=== PATIENT | male | born 1970 | race Caucasian/White ===

== ENCOUNTER 2024-07-15 10:44 | Observation (INO) ==
--- NOTE | 2024-07-15 11:24 | DR.SOBA ---
HPI Time Seen Time Seen by Provider: 07/15/24 11:22 HPI Comment HPI Comment: Acccording to pt he was doing better approx 4-5 days ago after d/c from the ER on 07/10.Has noticd gradual onset of shortnes of breath which worsens with activity associated with intermittent cough with increased swelling over this legs .Concerned here to have himself checked and get lasix injection Complaints Chief Complaint:: shortness of breath Reviewed Nurses Notes Reviewed: Yes Source History Provided: Patient Mode of Arrival Mode of Arrival: Ambulatory Duration Duration: Days Context Onset:: At Rest and With Light Exertion History of:: COPD Currently on:: Inhaled Bronchodilators Prehospital Care:: Furosemide Modifying Factors Worsens:: Exertion Improves:: Nothing PMH PMH Past Medical History: Diabetes, GERD, Hypertension and Renal Disease Past Surgical History: No Surgical History: No History Family History Family Medical History: Diabetes Mellitus, Cancer, [place], Coronary Artery Disease and Hypertension Social History Do you use any recreational Drugs:: No ROS Review of Systems Constitutional: Malaise and Fatigue Eyes: No Symptoms Reported ENTM: No Symptoms Reported Respiratoy: Non-Productive Cough and Short of Breath Cardiovascular: No Symptoms Reported Gastrointestinal/Abdominal: No Symptoms Reported Genitourinary: No Symptoms Reported Neurological: No Symptoms Reported Musculoskeletal: No Symptoms Reported Integumentary: No Symptoms Reported Hematologic/Lymphatic: No Symptoms Reported Psychiatric: No Symptoms Reported PE Vital Signs Vitals: Vital Signs Temperature 98.2 F Pulse Rate 90 Pulse Rate 91 Pulse Rate 91 Pulse Rate 88 Pulse Rate 89 Pulse Rate 92 Pulse Rate 91 Pulse Rate 90 Pulse Rate 91 Pulse Rate 93 Pulse Rate 96 Pulse Rate 97 Respiratory Rate 18 Respiratory Rate 21 Respiratory Rate 21 Respiratory Rate 19 Respiratory Rate 17 Respiratory Rate 20 Respiratory Rate 17 Respiratory Rate 16 Respiratory Rate 19 Respiratory Rate 19 Respiratory Rate 22 Blood Pressure 139/75 Blood Pressure 121/69 Blood Pressure 146/70 Blood Pressure 129/96 Blood Pressure 125/73 O2 Sat by Pulse Oximetry 90 O2 Sat by Pulse Oximetry 90 O2 Sat by Pulse Oximetry 91 O2 Sat by Pulse Oximetry 92 O2 Sat by Pulse Oximetry 94 O2 Sat by Pulse Oximetry 99 O2 Sat by Pulse Oximetry 90 O2 Sat by Pulse Oximetry 96 O2 Sat by Pulse Oximetry 97 O2 Sat by Pulse Oximetry 97 O2 Sat by Pulse Oximetry 93 O2 Sat by Pulse Oximetry 93 General Limitations: No Limitations General Appearance: Alert and In Distress Head Head Exam: Normal Inspection, Atraumatic and Normocephalic Eyes Eye exam: Normal Appearance, PERRL and EOMI ENT ENT Exam: Mucous Membranes Moist Neck Neck Exam: Normal Inspection and Full ROM Chest Chest Inspection: Normal Inspection and Symmetric Chest Wall Rise Respiratory Respiratory Exam: Prolonged Expiratory Phase Respiratory Exam: Bilateral: Wheezing and Bilateral: Decreased Breath Sounds Cardiovascular Cardiovascular Exam: +S1 and +S2 Abdominal Exam Abdominal Exam: Normal Bowel Sounds and Soft Extremities Extremities Exam: Edema (with thickened skin ) Neurologic Neurological Exam: Alert Skin Skin Exam: Normal Color MDM Additional Information Obtained Additional Findings:: copd exacerbation ,chf right V left ,obesity ,tobacco user hypoxia COURSE Treatment Treatment: labs,cxr ,solumederol IV ,duoneb ROR Labs Reviewed 07/15/24 12:10 07/15/24 12:10 Laboratory: WBC 6.7 X10^3/uL (3.6-10.0) 07/15/24 12:10 RBC 4.38 X10^6/uL (4.7-6.0) L 07/15/24 12:10 Hgb 13.6 g/dL (13.5-18.0) 07/15/24 12:10 Hct 40.3 % (42.0-54.0) L 07/15/24 12:10 MCV 92.0 fL (80.0-100.0) 07/15/24 12:10 MCH 31.1 pg (27.0-34.0) 07/15/24 12:10 MCHC 33.7 g/dL (33.0-35.0) 07/15/24 12:10 RDW 15.8 % (11.6-16.5) 07/15/24 12:10 Plt Count 161 X10^3/uL (150.0-450.0) 07/15/24 12:10 MPV 8.0 fL (7.4-11.0) 07/15/24 12:10 Neut % (Auto) 62.8 % (42.0-75.0) 07/15/24 12:10 Lymph % (Auto) 25.5 % (21.0-51.0) 07/15/24 12:10 [place] % (Auto) 8.1 % (0.0-13.0) 07/15/24 12:10 Eos % (Auto) 2.6 % (0.9-2.9) 07/15/24 12:10 Baso % (Auto) 1.0 % (0.2-1.0) 07/15/24 12:10 Neut # (Auto) 4.2 x10^3/uL (2.2-4.8) 07/15/24 12:10 Lymph # (Auto) 1.7 X10^3/uL (1.3-2.9) 07/15/24 12:10 [place] # (Auto) 0.5 x10^3/uL (0.3-0.8) 07/15/24 12:10 Eos # (Auto) 0.2 x10^3/uL (0.0-0.2) 07/15/24 12:10 Baso # (Auto) 0.1 X10^3/uL (0.0-0.1) 07/15/24 12:10 Absolute Nucleated RBC 0.1 /100WBC 07/15/24 12:10 Sodium 144 mmol/L (136-145) 07/15/24 12:10 Corrected Sodium 149 mmol/L (136-145) H 07/15/24 12:10 Potassium 4.0 mmol/L (3.5-5.1) 07/15/24 12:10 Chloride 104 mmol/L (98-107) 07/15/24 12:10 Carbon Dioxide 32.6 mmol/L (21-32) H 07/15/24 12:10 BUN 16 mg/dL (7-18) 07/15/24 12:10 Creatinine 2.09 mg/dL (0.70-1.30) H 07/15/24 12:10 Est GFR (MDRD) Af Amer 43 (>60) L 07/15/24 12:10 Est GFR (MDRD) Non-Af 35 (>60) L 07/15/24 12:10 Glucose 291 mg/dL (65-99) H 07/15/24 12:10 Calcium 8.7 mg/dL (8.5-10.1) 07/15/24 12:10 Corrected Calcium 9.6 mg/dL (8.5-10.1) 07/15/24 12:10 Total Bilirubin 0.50 mg/dL (0.2-1.0) 07/15/24 12:10 AST 14 Units/L (15-37) L 07/15/24 12:10 ALT 16 Units/L (12-78) 07/15/24 12:10 Alkaline Phosphatase 163 Units/L (46-116) H 07/15/24 12:10 B-Natriuretic Peptide 2050 pg/mL (0-79) H 07/15/24 12:10 Total Protein 7.4 g/dL (6.4-8.2) 07/15/24 12:10 Albumin 2.9 g/dL (3.4-5.0) L 07/15/24 12:10 Globulin 4.5 g/dL (2.5-4.5) 07/15/24 12:10 Albumin/Globulin Ratio 0.6 Ratio (1.1-2.1) L 07/15/24 12:10 Opioid Opioid Risk Tool Age (Rafa box if 16-45): No History of Preadolescent Sexual Abuse: No Total: 0 Total Score Risk Category: Low Risk Copyright: Cristian IVY predicting aberrant behaviors Discharge Plan Diagnosis Discharge Problem: Acute exacerbation of chronic obstructive pulmonary disease, Hypoxia, CHF exacerbation, Acute on chronic kidney failure, Uncontrolled diabetes mellitus Discharge Plan Patient Disposition: 09 ADMITTED INPATIENT Condition: Stable Prescriptions: No Action quetiapine 25 mg tablet 25 mg PO QPM atorvastatin 20 mg tablet 20 mg PO QDAY torsemide 20 mg tablet 20 mg PO BID famotidine 40 mg tablet 40 mg PO QDAY allopurinol 100 mg tablet 100 mg PO QDAY hydrocodone-acetaminophen 10-325 mg tablet 1 tab PO Q4H PRN furosemide 20 mg tablet 20 mg PO BID ergocalciferol (vitamin D2) 1,250 mcg (50,000 unit) capsule 1,250 mcg PO QWEEK Jardiance 10 mg tablet 10 mg PO QDAY Health Concerns: Post Hospitalization: new medications and changes needed to prevent readmission or further decline. Pt educated and given instructions on all concerns. Plan of Treatment: Continue with present treatment and follow up plan. Pt is to keep follow up appointment as instructed and take medications as ordered. Orders to Discharge Patient Discharge Orders: Transfer (Routine); Ordered 07/15/24 Ordered By: Chauncey Rodriguez Follow ups/Referrals Follow ups/Referrals: Michelle REGAN [Primary Care Provider] - 3 days Instructions Stand Alone Forms: Post Hospital Follow Up Care ADDITIONAL NOTES Additional Notes Additional Notes: BNP over 1999,cxr chronic changes with blunting of costophrenic angle,CHF right v left or both ,Acute on chronic renal failure stage 3,uncontrolled dm tobacco usre and hypoxia .spoke with Dr Alfonso agreed to ahve patient admitted for further management
[2024-07-15] MEDS: SOLU-Medrol 125 MG VIAL IVP ONE (12:08)
[2024-07-15] MEDS: DUONEB 0.5 MG/3 MG (3 mL) NEB ONE (12:12)
[2024-07-15 12:18] LABS: HEMOGLOBIN 13.6 g/dL (13.5-18.0); WHITE BLOOD COUNT 6.7 X10^3/uL (3.6-10.0)
[2024-07-15 12:21] LABS: BASOPHILS # (AUTO) 0.1 X10^3/uL (0.0-0.1); EOSINOPHILS # (AUTO) 0.2 x10^3/uL (0.0-0.2); EOSINOPHILS % (AUTO) 2.6 % (0.9-2.9); HEMATOCRIT 40.3 % (42.0-54.0); LYMPHOCYTES # (AUTO) 1.7 X10^3/uL (1.3-2.9); LYMPHOCYTES % (AUTO) 25.5 % (21.0-51.0); MEAN CORPUSCULAR HEMOGLOBIN 31.1 pg (27.0-34.0); MEAN CORPUSCULAR HGB CONC 33.7 g/dL (33.0-35.0); MONOCYTES # (AUTO) 0.5 x10^3/uL (0.3-0.8); MONOCYTES % (AUTO) 8.1 % (0.0-13.0); NEUTROPHILS # (AUTO) 4.2 x10^3/uL (2.2-4.8); NEUTROPHILS % (AUTO) 62.8 % (42.0-75.0); PLATELET COUNT 161 X10^3/uL (150.0-450.0); RED BLOOD COUNT 4.38 X10^6/uL (4.7-6.0); RED CELL DISTRIBUTION WIDTH 15.8 % (11.6-16.5)
[2024-07-15 12:30] LABS: ALBUMIN 2.9 g/dL (3.4-5.0); CALCIUM 8.7 mg/dL (8.5-10.1); CARBON DIOXIDE 32.6 mmol/L (21-32); COR CA(FOR HYPOALB) 9.6 mg/dL (8.5-10.1); CREATININE 2.09 mg/dL (0.70-1.30); TOTAL PROTEIN 7.4 g/dL (6.4-8.2)
[2024-07-15] MEDS: LASIX IVP ONE ×2 (13:19→16:26)
[2024-07-15] MEDS ORDERED: NORCO 10/325 TAB PO PRN (13:44)
[2024-07-15] MEDS: ZYLOPRIM PO SCH (15:54)
[2024-07-15] MEDS: LANTUS SC ONE (16:26)
[2024-07-15] MEDS: DUONEB 0.5 MG/3 MG (3 mL) NEB SCH (17:01)
[2024-07-15] MEDS: HumaLOG SC PRN (17:08)
[2024-07-15] MEDS: LASIX IVP SCH (18:51)
[2024-07-15] MEDS: SOLU-Medrol 40 MG VIAL IVP SCH (20:17)
[2024-07-15] MEDS: PULMICORT NEB TX 0.5 MG NEB SCH (20:32)
[2024-07-15] MEDS: NovoLIN R (or HumuLIN R) SUBCUT PRN (21:00)
[2024-07-15] MEDS: SNACK - Diabetic Appropriate PO SCH (21:00)
[2024-07-16 05:39] LABS: BASOPHILS % (AUTO) 0.1 % (0.2-1.0); HEMATOCRIT 35.4 % (42.0-54.0); LYMPHOCYTES # (AUTO) 0.6 X10^3/uL (1.3-2.9); LYMPHOCYTES % (AUTO) 9.5 % (21.0-51.0); MEAN CORPUSCULAR HEMOGLOBIN 30.8 pg (27.0-34.0); MEAN CORPUSCULAR VOLUME 90.5 fL (80.0-100.0); MEAN PLATELET VOLUME 8.6 fL (7.4-11.0); MONOCYTES # (AUTO) 0.1 x10^3/uL (0.3-0.8); MONOCYTES % (AUTO) 1.1 % (0.0-13.0); NEUTROPHILS # (AUTO) 5.8 x10^3/uL (2.2-4.8); NEUTROPHILS % (AUTO) 89.3 % (42.0-75.0); PLATELET COUNT 150 X10^3/uL (150.0-450.0); RED BLOOD COUNT 3.91 X10^6/uL (4.7-6.0); RED CELL DISTRIBUTION WIDTH 15.4 % (11.6-16.5); WHITE BLOOD COUNT 6.5 X10^3/uL (3.6-10.0)
[2024-07-16 05:51] LABS: ALBUMIN 2.5 g/dL (3.4-5.0); CALCIUM 8.7 mg/dL (8.5-10.1); CARBON DIOXIDE 29.6 mmol/L (21-32); COR CA(FOR HYPOALB) 9.9 mg/dL (8.5-10.1); CREATININE 2.22 mg/dL (0.70-1.30); POTASSIUM 3.8 mmol/L (3.5-5.1); TOTAL PROTEIN 6.6 g/dL (6.4-8.2)
[2024-07-16] MEDS ORDERED: CONSULT PHARMACY - POTASSIUM & MAGNESIUM XX SCH (07:00)
[2024-07-16] MEDS: LIPITOR TAB 20 MG PO SCH (09:12)
[2024-07-16] MEDS: MAG-OX TAB PO SCH (09:12)
[2024-07-16] MEDS: KLOR-CON 10 MEQ TAB PO SCH (09:12)
[2024-07-16 09:26] VITALS: BMI 38.9
[2024-07-16] MEDS: ALDACTONE TAB 25 MG PO SCH (12:15)
[2024-07-16] MEDS: COREG TAB 6.25 MG PO SCH (20:16)
[2024-07-16] MEDS: SNACK - Diabetic Appropriate PO SCH (20:16)
[2024-07-16] MEDS: LANTUS SC SCH (20:21)
--- NOTE | 2024-07-16 22:44 | DR.H&P ---
H&P History & Physical for Day of: H&P Date: 07/16/24 Chief Complaint Chief Complaint: A little bit of coughing and fluid on my lungs. History of Present Illness History of Present Illness: Dhiraj Parekh is a 53-year-old white male patient with a history of COPD, CHF, and renal failure. He reports that he came to the ER yesterday due to an exacerbation of his COPD and CHF, and is currently experiencing difficulty breathing and coughing. Symptoms have worsened in the past few days, indicating that they are related to changes in weather, which he links to his prior episodes of illness over the last five years. Dhiraj denies chest pain but reports a notable increase in cough. He is diabetic, with a history of elevated blood sugars. Recent treatments include nebulizer therapy (duonebs) that have helped slightly, Lasix for fluid management, and Lantus to control blood sugar levels, which he feels has not sufficiently addressed his blood sugar irregularities. Overall, he expresses frustration at the number of diagnosed conditions, stating that he struggles to understand the multiple diagnoses given his symptoms and treatments. Past Medical History Past Medical History: Diabetes, GERD, Hypertension and Renal Disease Additional Medical History: Dhiraj has been diagnosed with conditions of COPD, CHF, chronic kidney disease stage 3B (with elevated creatinine of 2.22), and diabetes with high blood sugar levels (recorded at 394, 414). His renal function appears to have been chronic, with a baseline creatinine of around 2.02 to 2.09. Recent tests show elevated BNP levels indicating fluid overload due to congestive heart failure, measuring at 2390 today compared to 2050 yesterday. No recent HbA1c levels were documented in the conversation. Past Surgical History Surgical History: No History Family History Family Medical History: Diabetes Mellitus, Cancer and Hypertension Social History Does patient currently use any type of tobacco product: Yes Have you used tobacco products in the last 12 months: Yes Type of Tobacco Use: Cigarettes How many years tobacco product used: 35 Does any household member use tobacco: Yes Alcohol Use: None Drug Use: None Medications Home Medications: Home Medications Medication Instructions Recorded Confirmed Type allopurinol 100 mg tablet 100 mg PO QDAY 07/15/24 07/15/24 History amlodipine 10 mg tablet 10 mg PO QDAY 07/15/24 07/15/24 History atorvastatin 20 mg tablet 20 mg PO QDAY 07/15/24 07/15/24 History empagliflozin 10 mg tablet 10 mg PO QDAY 07/15/24 07/15/24 History (Jardiance) ergocalciferol (vitamin D2) 1,250 1,250 mcg PO QWEEK 07/15/24 07/15/24 History mcg (50,000 unit) capsule famotidine 40 mg tablet 40 mg PO QDAY 07/15/24 07/15/24 History furosemide 20 mg tablet 20 mg PO BID 07/15/24 07/15/24 History hydrocodone 10 mg-acetaminophen 1 tab PO Q4H PRN 07/15/24 07/15/24 History 325 mg tablet quetiapine 25 mg tablet 25 mg PO QPM 07/15/24 07/15/24 History temazepam 15 mg capsule 15 mg PO QHS 07/15/24 07/15/24 History torsemide 20 mg tablet 20 mg PO BID 07/15/24 07/15/24 History Allergies Allergies Allergy/AdvReac Type Severity Reaction Status Date / Time Sulfa (Sulfonamide Allergy Verified 07/15/24 13:11 Antibiotics) [SULFA] Labs 07/16/24 04:46 07/16/24 19:34 Labs: Laboratory WBC 6.5 X10^3/uL (3.6-10.0) 07/16/24 04:46 RBC 3.91 X10^6/uL (4.7-6.0) L 07/16/24 04:46 Hgb 12.0 g/dL (13.5-18.0) L 07/16/24 04:46 Hct 35.4 % (42.0-54.0) L 07/16/24 04:46 MCV 90.5 fL (80.0-100.0) 07/16/24 04:46 MCH 30.8 pg (27.0-34.0) 07/16/24 04:46 MCHC 34.0 g/dL (33.0-35.0) 07/16/24 04:46 RDW 15.4 % (11.6-16.5) 07/16/24 04:46 Plt Count 150 X10^3/uL (150.0-450.0) 07/16/24 04:46 MPV 8.6 fL (7.4-11.0) 07/16/24 04:46 Neut % (Auto) 89.3 % (42.0-75.0) H 07/16/24 04:46 Lymph % (Auto) 9.5 % (21.0-51.0) L 07/16/24 04:46 [place] % (Auto) 1.1 % (0.0-13.0) 07/16/24 04:46 Eos % (Auto) 0.0 % (0.9-2.9) L 07/16/24 04:46 Baso % (Auto) 0.1 % (0.2-1.0) L 07/16/24 04:46 Neut # (Auto) 5.8 x10^3/uL (2.2-4.8) H 07/16/24 04:46 Lymph # (Auto) 0.6 X10^3/uL (1.3-2.9) L 07/16/24 04:46 [place] # (Auto) 0.1 x10^3/uL (0.3-0.8) L 07/16/24 04:46 Eos # (Auto) 0.0 x10^3/uL (0.0-0.2) 07/16/24 04:46 Baso # (Auto) 0.0 X10^3/uL (0.0-0.1) 07/16/24 04:46 Absolute Nucleated RBC 0.0 /100WBC 07/16/24 04:46 Sodium 137 mmol/L (136-145) 07/16/24 04:46 Corrected Sodium 144 mmol/L (136-145) 07/16/24 04:46 Potassium 3.8 mmol/L (3.5-5.1) 07/16/24 04:46 Chloride 99 mmol/L (98-107) 07/16/24 04:46 Carbon Dioxide 29.6 mmol/L (21-32) 07/16/24 04:46 BUN 21 mg/dL (7-18) H 07/16/24 04:46 Creatinine 2.22 mg/dL (0.70-1.30) H 07/16/24 04:46 Est GFR (MDRD) Af Amer 40 (>60) L 07/16/24 04:46 Est GFR (MDRD) Non-Af 33 (>60) L 07/16/24 04:46 Glucose 695 mg/dL (65-99) H* 07/16/24 19:34 POC Glucose (mg/dL) > 600 mg/dL (65-99) 07/16/24 19:24 Hemoglobin A1c 10.9 % 07/15/24 12:10 Calcium 8.7 mg/dL (8.5-10.1) 07/16/24 04:46 Corrected Calcium 9.9 mg/dL (8.5-10.1) 07/16/24 04:46 Magnesium 1.5 mg/dL (2.0-2.9) L 07/16/24 04:46 Total Bilirubin 0.40 mg/dL (0.2-1.0) 07/16/24 04:46 AST 14 Units/L (15-37) L 07/16/24 04:46 ALT 14 Units/L (12-78) 07/16/24 04:46 Alkaline Phosphatase 145 Units/L (46-116) H 07/16/24 04:46 B-Natriuretic Peptide 2390 pg/mL (0-79) H 07/16/24 04:46 Total Protein 6.6 g/dL (6.4-8.2) 07/16/24 04:46 Albumin 2.5 g/dL (3.4-5.0) L 07/16/24 04:46 Globulin 4.1 g/dL (2.5-4.5) 07/16/24 04:46 Albumin/Globulin Ratio 0.6 Ratio (1.1-2.1) L 07/16/24 04:46 Review of Systems Constitutional: Other (Review of Systems (ROS) Pulmonary - reports difficulty with breathing and a cough but denies chest pain. Cardiovascular - appears to be experiencing signs related to CHF. There were no reported symptoms from the gastrointestinal, neurological, or musculoskeletal systems. Denies abdominal pain) Respiratory: Cough, Shortness of Breath and SOB with Excertion; denies Hemoptysis Cardiovascular: Orthopnea, Edema and Light Headedness Gastrointestinal: Nausea; denies Diarrhea, Melena or Hematochezia Genitourinary: Retention; denies Hematuria Musculoskeletal: Back Pain Skin: No Symptoms Reported Neurological: No Symptoms Reported Physical Exam Vital Signs: Vital Signs Temperature 98 F Temperature 98.9 F Pulse Rate [Left Brachial] 90 Pulse Rate [Left Brachial] 96 Pulse Rate 79 Respiratory Rate 22 Respiratory Rate 18 Blood Pressure [Left Arm] 127/60 Blood Pressure [Left Arm] 107/59 O2 Sat by Pulse Oximetry 94 O2 Sat by Pulse Oximetry 96 O2 Sat by Pulse Oximetry 93 Physical Examination Vital signs: Blood pressure 136/75, heart rate and rhythm not documented, respiratory rate not documented, temperature not documented. Examination findings include positive signs of fluid overload (leg swelling), and upon auscultation, he likely exhibits abnormal lung sounds indicative of congestion. No specific findings from ears, nose, or throat were noted in the transcript. Oriented: Normal, Time, Person and Place Eyes: Normal Ear: Normal Nose: Normal Throat: Normal Respiratory: Clear Throughout Cardiovascular: Normal : Normal Auscultation: Bowel Sounds: Normal Palpation: Normal Tenderness: Normal Skin: Normal Musculoskeletal: Normal Psychiatric: Anxiety and Agitation Mood Description: Calm Affect: Anxious Speech Pattern: Clear and Appropriate Assessment/Plan (1) CHF exacerbation: Status: Acute Plan: Impression & Plan: 1. Congestive Heart Failure Exacerbation - Discontinue amlodipine - Start carvedilol 6.25mg twice daily - Start spironolactone 12.5mg daily - Continue current diuretic regimen - Echocardiogram ordered for tomorrow - Cardiology consultation with Dr. Mandujano 2. Diabetes Mellitus with Poor Control - Adjust insulin regimen: Lantus 20 units in morning and 30 units at bedtime - Continue sliding scale insulin coverage 3. Electrolyte Abnormalities - Magnesium replacement for hypomagnesemia 4. COPD Exacerbation - Continue DuoNeb treatments (2) Bilateral lower extremity edema: Status: Acute (3) Acute hypokalemia: Status: Acute (4) Acute renal insufficiency: Status: Acute (5) Acute exacerbation of chronic obstructive pulmonary disease: Status: Acute Plan: DuoNebs with inhaled budesonide every 12 hours normal IV antibiotics and steroids. (6) Hypoxia: Status: Acute Plan: Supplemental O2 via nasal cannula. (7) Acute on chronic kidney failure: Status: Acute (8) Uncontrolled diabetes mellitus: Status: Acute Plan: The patient was admitted and started on Lantus 30 units in the emergency department yesterday evening. Since his blood sugar is up in the 400s this morning, we will add 20 units every morning and 30 units at bedtime. We are also using a sliding-scale regular insulin per protocol on this patient. He also started on Jardiance 25 mg daily in the emergency room yesterday evening. Review H&P Reviewed: Yes Patient was examined?: Yes
[2024-07-17 05:06] LABS: BASOPHILS % (AUTO) 0 % (0.2-1.0); HEMATOCRIT 35.3 % (42.0-54.0); HEMOGLOBIN 11.7 g/dL (13.5-18.0); LYMPHOCYTES # (AUTO) 0.6 X10^3/uL (1.3-2.9); LYMPHOCYTES % (AUTO) 5.6 % (21.0-51.0); MEAN CORPUSCULAR HEMOGLOBIN 30.5 pg (27.0-34.0); MEAN CORPUSCULAR HGB CONC 33.1 g/dL (33.0-35.0); MEAN CORPUSCULAR VOLUME 92.1 fL (80.0-100.0); MEAN PLATELET VOLUME 8.7 fL (7.4-11.0); MONOCYTES # (AUTO) 0.3 x10^3/uL (0.3-0.8); MONOCYTES % (AUTO) 3.1 % (0.0-13.0); NEUTROPHILS # (AUTO) 9.1 x10^3/uL (2.2-4.8); NEUTROPHILS % (AUTO) 91.3 % (42.0-75.0); PLATELET COUNT 168 X10^3/uL (150.0-450.0); RED BLOOD COUNT 3.83 X10^6/uL (4.7-6.0); RED CELL DISTRIBUTION WIDTH 15.6 % (11.6-16.5)
[2024-07-17 05:21] LABS: ALBUMIN 2.8 g/dL (3.4-5.0); CALCIUM 8.7 mg/dL (8.5-10.1); CARBON DIOXIDE 29.9 mmol/L (21-32); COR CA(FOR HYPOALB) 9.7 mg/dL (8.5-10.1); CREATININE 2.52 mg/dL (0.70-1.30); POTASSIUM 4.5 mmol/L (3.5-5.1); TOTAL PROTEIN 6.9 g/dL (6.4-8.2)
[2024-07-17 05:59] LABS: PLATELET MORPHOLOGY COMMENT NORMAL (NORMAL)
--- NOTE | 2024-07-17 06:05 | RAD ---
EXAM: CHEST, PA/LAT ADULT HISTORY: Swelling of bilateral legs x 5 days with SOB, chills, and productive cough with clear sputum.; COMPARISON: 01/27/2024 FINDINGS: The cardiomediastinal silhouette is stable. Scattered bilateral opacities. No pneumothorax. No acute osseous abnormality. IMPRESSION: Bilateral opacities which may be due to edema or pneumonia. Recommend follow-up to resolution. THIS IS AN ELECTRONICALLY VERIFIED FINAL REPORT 07/17/2024 6:02 AM - Electronically signed by Zafar George MD
--- NOTE | 2024-07-17 07:56 | EKG ---
Test Reason : chf Blood Pressure : */* mmHG Vent. Rate : 86 BPM Atrial Rate : 86 BPM P-R Int : 164 ms QRS Dur : 116 ms QT Int : 384 ms P-R-T Axes : 59 103 51 degrees QTc Int : 459 ms Normal sinus rhythm Rightward axis Incomplete right bundle branch block Nonspecific T wave abnormality Borderline ECG No previous ECGs available Confirmed by Marlon Mandujano MD ([id number]) on 07/17/2024 9:01:04 AM Referred By: Confirmed By: Marlon Mandujano MD
[2024-07-17] MEDS ORDERED: LANTUS SC SCH (09:00)
[2024-07-17] MEDS: LOVENOX INJ 30 MG SYR SC SCH (09:53)
[2024-07-17] MEDS: NICOTINE PATCH TD SCH (09:54)
[2024-07-17] MEDS: FARXIGA PO SCH (09:55)
[2024-07-17] MEDS: LANTUS SC SCH (10:30)
--- NOTE | 2024-07-17 11:50 | DR.CONSULT ---
CONSULT Consultation for Day of: Date: 07/17/24 Chief Complaint Chief Complaint: sob/edema Allergies Allergies Allergy/AdvReac Type Severity Reaction Status Date / Time Sulfa (Sulfonamide Allergy Verified 07/15/24 13:11 Antibiotics) [SULFA] History of Present Illness History of Present Illness: 53 yo male- smoker/dm/copd/chf/renal disease- bad edema for years ( lymphedema)- states very sob/orthopnea/pnd- admiited to hospital- cxr : B PNA- bnp 1999- feeling better w steroids/lasix/antibiotics- echo showed EF 25- 30%- 7.4 cm LVEDD-dilated suggesting chronicity Past Medical History Past Medical History: Diabetes, GERD, Hypertension and Renal Disease Additional Medical History: Dhiraj has been diagnosed with conditions of COPD, CHF, chronic kidney disease stage 3B (with elevated creatinine of 2.22), and diabetes with high blood sugar levels (recorded at 394, 414). His renal function appears to have been chronic, with a baseline creatinine of around 2.02 to 2.09. Recent tests show elevated BNP levels indicating fluid overload due to congestive heart failure, measuring at 2390 today compared to 2050 yesterday. No recent HbA1c levels were documented in the conversation. Past Surgical History Surgical History: No History Family History Family Medical History: Diabetes Mellitus, Cancer and Hypertension Social History Does patient currently use any type of tobacco product: Yes Have you used tobacco products in the last 12 months: Yes Type of Tobacco Use: Cigarettes How many years tobacco product used: 35 Does any household member use tobacco: Yes Alcohol Use: None Drug Use: None Medications Home Medications: Sulfa (Sulfonamide Antibiotics) [SULFA] Allergy (Verified 07/15/24 13:11) CONTINUE taking the following medications allopurinol 100 mg tablet 100 mg PO QDAY 07/15/24 [History] amlodipine 10 mg tablet 10 mg PO QDAY 07/15/24 [History] atorvastatin 20 mg tablet 20 mg PO QDAY 07/15/24 [History] empagliflozin 10 mg tablet (Jardiance) 10 mg PO QDAY 07/15/24 [History] ergocalciferol (vitamin D2) 1,250 mcg (50,000 unit) capsule 1,250 mcg PO QWEEK 07/15/24 [History] famotidine 40 mg tablet 40 mg PO QDAY 07/15/24 [History] furosemide 20 mg tablet 20 mg PO BID 07/15/24 [History] hydrocodone 10 mg-acetaminophen 325 mg tablet 1 tab PO Q4H PRN 07/15/24 [History] quetiapine 25 mg tablet 25 mg PO QPM 07/15/24 [History] temazepam 15 mg capsule 15 mg PO QHS 07/15/24 [History] torsemide 20 mg tablet 20 mg PO BID 07/15/24 [History] Physical Exam Vital Signs: Vital Signs Temperature 98.6 F Pulse Rate [Left Brachial] 87 Respiratory Rate 19 Blood Pressure [Left Arm] 131/71 O2 Sat by Pulse Oximetry 97 alert ox3 nad B cracles rrr 3 plus B edema labs:hct 35 glu 400-600 cr 2.5 alb 2.8 ekg: nsr rad irbbb Plan (1) CHF exacerbation: Status: Acute (2) Bilateral lower extremity edema: Status: Acute (3) Acute exacerbation of chronic obstructive pulmonary disease: Status: Acute (4) Acute on chronic kidney failure: Status: Acute (5) Uncontrolled diabetes mellitus: Status: Acute (6) Diabetes: Status: Acute (7) Cardiomyopathy: Status: Acute Narrative Support Text: cont diuresis- add bb/entresto- follow kidneys- check tsh- will need cath in fututre when out of chf/riskier due to kidneys- no corrine as Cr > 2
[2024-07-17 12:37] LABS: CHOL/HDL RATIO 3.2 (0.0-5.0)
[2024-07-17] MEDS: ENTRESTO 24/26 MG TABLET PO SCH (13:19)
[2024-07-18 06:24] LABS: BASOPHILS % (AUTO) 0.1 % (0.2-1.0); HEMATOCRIT 36.2 % (42.0-54.0); LYMPHOCYTES # (AUTO) 0.6 X10^3/uL (1.3-2.9); LYMPHOCYTES % (AUTO) 4.7 % (21.0-51.0); MEAN CORPUSCULAR HEMOGLOBIN 30.6 pg (27.0-34.0); MEAN CORPUSCULAR HGB CONC 33.2 g/dL (33.0-35.0); MEAN PLATELET VOLUME 8.6 fL (7.4-11.0); MONOCYTES # (AUTO) 0.2 x10^3/uL (0.3-0.8); MONOCYTES % (AUTO) 1.6 % (0.0-13.0); NEUTROPHILS # (AUTO) 11.3 x10^3/uL (2.2-4.8); NEUTROPHILS % (AUTO) 93.6 % (42.0-75.0); PLATELET COUNT 169 X10^3/uL (150.0-450.0); RED BLOOD COUNT 3.93 X10^6/uL (4.7-6.0); RED CELL DISTRIBUTION WIDTH 15.8 % (11.6-16.5); WHITE BLOOD COUNT 12.1 X10^3/uL (3.6-10.0)
[2024-07-18 06:40] LABS: ALBUMIN 2.4 g/dL (3.4-5.0); CALCIUM 8.6 mg/dL (8.5-10.1); CARBON DIOXIDE 32.2 mmol/L (21-32); COR CA(FOR HYPOALB) 9.9 mg/dL (8.5-10.1); CREATININE 2.5 mg/dL (0.70-1.30); POTASSIUM 4.2 mmol/L (3.5-5.1); TOTAL PROTEIN 6.2 g/dL (6.4-8.2)
[2024-07-18 07:24] LABS: BAND NEUTROPHILS % 1 % (0-10); PLATELET MORPHOLOGY COMMENT NORMAL (NORMAL)
--- NOTE | 2024-07-18 07:24 | RAD ---
EXAM:CHEST, 1 VIEWHISTORY:sob, coughing;COMPARISON:07/15/2024FINDINGS:T he cardiomediastinal silhouette is stable.Scattered bilateral airspace opacities with a basilar predominance. No pneumothorax or effusion.No acute osseous abnormality.IMPRESSION:Bilateral opacities which may be due to chronic changes, edema, or pneumonia. Continued follow-up recommended.THIS IS AN ELECTRONICALLY VERIFIED FINAL [id number] 7:21 AM - Electronically signed by Zafar George MD
--- NOTE | 2024-07-18 08:12 | NOTE.SOAP ---
Soap Note Note for Day of Date of Exam: 07/18/24 Subjective Data Subjective Data: 90% better per him- sob better/edema better Objective Data Objective Data: i/o -600 bp111/63 p80 lungs: mini mal fluid/mild wheeze edema: improved labs: cr 2.5 stable, glu 260-280 ldl 104 tsh low but t4 pending Assessment Assessment: cardiomyopathy-dm,htn,hlp, smoker, crf Plan Plan: cont coreg/entresto/lasix- needs close f/u of kidney function- in future when out of chf and cr stable: cath- statin increased to 40 as ldl 104- stop smoking
--- NOTE | 2024-07-18 08:16 | PCM.PROG ---
Progress Note Progress Note for Day of Date of Exam: 07/17/24 Subjective Subjective: The patient was admitted for COPD exacerbation, congestive heart failure exacerbation, and acute chronic renal failure. The patient was seen by etl database developer, Dr. Mandujano earlier this morning. Echocardiogram was ordered and is pending. Clinical Observations The patient reports feeling much better and wants to go home. He reports that he feels back to his normal baseline today and much better since admission. He also reports that the lower extremity edema that he has had is much improved. Vital signs: Blood pressure: 106/55 Pulse: 84 Respiration: 20 Temperature: 98 degrees Fahrenheit SpO2: 94% on 2 liter nasal cannula with FiO2 of 28% Physical exam: Neck: Supple Lungs: Clear, no basilar rails, no bronchi Cardiovascular: S1 S2, no murmur, rubber gallop Extremities: 3 plus bilateral extremity edema Lab results: WBC: 10,000 Hemoglobin: 11.7 grams Hematocrit: 35.3% BUN: 31 Creatinine: 2.52 Estimated GFR: 29 Blood sugar: 504 (CMP), 472 (one touch) Patient did not receive 30 units of Lantus yesterday morning Assessment: CHF exacerbation improved Acute on chronic renal failure improved Chronic kidney disease stage 3A Diabetes type 2 COPD exacerbation Past Medical Family Social History Allergies: Allergies Sulfa (Sulfonamide Antibiotics) [SULFA] Allergy (Verified 07/15/24 13:11) Review of Systems ROS: No change since H&P Vital Signs and I&O's Vital Signs: Vital Signs Temperature 98.3 F Pulse Rate [Left Brachial] 80 Respiratory Rate 18 Blood Pressure [Right Arm] 111/63 O2 Sat by Pulse Oximetry 97 Intake and Output: Intake & Output 07/15/24 07/16/24 07/17/24 07/18/24 11:59 11:59 11:59 11:59 Intake Total 730 / 730 982 / 982 1330 / 1330 Output Total 900 / 900 1320 / 1320 1950 / 1950 Balance -170 / -170 -338 / -338 -620 / -620 Physical Exam Oriented: Normal, Time, Person and Place Eyes: Normal Ear: Normal Nose: Normal Throat: Normal Cardiovascular: Normal : Normal Auscultation: Bowel Sounds: Normal Tenderness: Normal Skin: Normal Musculoskeletal: Normal Psychiatric: Anxiety and Agitation Mood Description: Calm Affect: Anxious Speech Pattern: Clear and Appropriate Laboratory and Diagnostics 07/18/24 05:25 07/18/24 05:25 Labs: Laboratory WBC 12.1 X10^3/uL (3.6-10.0) H 07/18/24 05:25 RBC 3.93 X10^6/uL (4.7-6.0) L 07/18/24 05:25 Hgb 12.0 g/dL (13.5-18.0) L 07/18/24 05:25 Hct 36.2 % (42.0-54.0) L 07/18/24 05:25 MCV 92.0 fL (80.0-100.0) 07/18/24 05:25 MCH 30.6 pg (27.0-34.0) 07/18/24 05:25 MCHC 33.2 g/dL (33.0-35.0) 07/18/24 05:25 RDW 15.8 % (11.6-16.5) 07/18/24 05:25 Plt Count 169 X10^3/uL (150.0-450.0) 07/18/24 05:25 Plt Count Comment Adequate (ADEQUATE) 07/18/24 05:25 MPV 8.6 fL (7.4-11.0) 07/18/24 05:25 Neut % (Auto) 93.6 % (42.0-75.0) H 07/18/24 05:25 Lymph % (Auto) 4.7 % (21.0-51.0) L 07/18/24 05:25 [place] % (Auto) 1.6 % (0.0-13.0) 07/18/24 05:25 Eos % (Auto) 0.0 % (0.9-2.9) L 07/18/24 05:25 Baso % (Auto) 0.1 % (0.2-1.0) L 07/18/24 05:25 Neut # (Auto) 11.3 x10^3/uL (2.2-4.8) H 07/18/24 05:25 Lymph # (Auto) 0.6 X10^3/uL (1.3-2.9) L 07/18/24 05:25 [place] # (Auto) 0.2 x10^3/uL (0.3-0.8) L 07/18/24 05:25 Eos # (Auto) 0.0 x10^3/uL (0.0-0.2) 07/18/24 05:25 Baso # (Auto) 0.0 X10^3/uL (0.0-0.1) 07/18/24 05:25 Absolute Nucleated RBC 0.0 /100WBC 07/18/24 05:25 Total Counted 100 07/18/24 05:25 Neutrophils % (Manual) 94 % (39-76) H 07/18/24 05:25 Band Neutrophils % 1 % (0-10) 07/18/24 05:25 Lymphocytes % (Manual) 3 % (13-43) L 07/18/24 05:25 Monocytes % (Manual) 2 % (4-9) L 07/18/24 05:25 Plt Morphology Comment Normal (NORMAL) 07/18/24 05:25 RBC Morphology Normal (NORMAL) 07/18/24 05:25 Sodium 137 mmol/L (136-145) 07/18/24 05:25 Corrected Sodium 141 mmol/L (136-145) 07/18/24 05:25 Potassium 4.2 mmol/L (3.5-5.1) 07/18/24 05:25 Chloride 100 mmol/L (98-107) 07/18/24 05:25 Carbon Dioxide 32.2 mmol/L (21-32) H 07/18/24 05:25 BUN 42 mg/dL (7-18) H 07/18/24 05:25 Creatinine 2.50 mg/dL (0.70-1.30) H 07/18/24 05:25 Est GFR (MDRD) Af Amer 35 (>60) L 07/18/24 05:25 Est GFR (MDRD) Non-Af 29 (>60) L 07/18/24 05:25 Glucose 285 mg/dL (65-99) H 07/18/24 05:25 POC Glucose (mg/dL) 264 mg/dL (65-99) H 07/18/24 05:24 Hemoglobin A1c 10.9 % 07/15/24 12:10 Calcium 8.6 mg/dL (8.5-10.1) 07/18/24 05:25 Corrected Calcium 9.9 mg/dL (8.5-10.1) 07/18/24 05:25 Magnesium 2.0 mg/dL (2.0-2.9) 07/17/24 04:26 Total Bilirubin 0.20 mg/dL (0.2-1.0) 07/18/24 05:25 AST 53 Units/L (15-37) H 07/18/24 05:25 ALT 58 Units/L (12-78) 07/18/24 05:25 Alkaline Phosphatase 128 Units/L (46-116) H 07/18/24 05:25 B-Natriuretic Peptide 2390 pg/mL (0-79) H 07/16/24 04:46 Total Protein 6.2 g/dL (6.4-8.2) L 07/18/24 05:25 Albumin 2.4 g/dL (3.4-5.0) L 07/18/24 05:25 Globulin 3.8 g/dL (2.5-4.5) 07/18/24 05:25 Albumin/Globulin Ratio 0.6 Ratio (1.1-2.1) L 07/18/24 05:25 Triglycerides 40 mg/dL (0-150) 07/17/24 04:26 Cholesterol 163 mg/dL (0-200) 07/17/24 04:26 LDL Cholesterol, Calc 104 mg/dL (0-100) H 07/17/24 04:26 HDL Cholesterol 51 mg/dL (40-60) 07/17/24 04:26 Cholesterol/HDL Ratio 3.2 (0.0-5.0) 07/17/24 04:26 Thyroxine (T4) 6.4 ug/dL (4.7-13.3) 07/18/24 05:25 TSH 3rd Generation 0.248 uIU/mL (0.358-3.74) L 07/17/24 04:26 TSH 3rd Generation Cancelled 07/17/24 04:26 Radiology Reviewed: Yes Plan (1) CHF exacerbation: Status: Acute Plan: Plan/Recommendations Follow up with echocardiogram results Change patient's Lantus to 40 units BID Check with [employer] Mixer Operator Dr. Mandujano to determine when the patient can be discharged. Pending echocardiogram results will determine medications for congestive heart failure treatment (2) Bilateral lower extremity edema: Status: Acute (3) Acute exacerbation of chronic obstructive pulmonary disease: Status: Acute Plan: DuoNebs with inhaled budesonide every 12 hours normal IV antibiotics and steroids. (4) Acute on chronic kidney failure: Status: Acute (5) Uncontrolled diabetes mellitus: Status: Acute Plan: The patient was admitted and started on Lantus 30 units in the emergency department yesterday evening. Since his blood sugar is up in the 400s this morning, we will add 20 units every morning and 30 units at bedtime. We are also using a sliding-scale regular insulin per protocol on this patient. We will change the patient's Lantus to 40 units subcutaneous every 12 hours this morning. He also started on Jardiance 25 mg daily in the emergency room yesterday evening. (6) Diabetes: Status: Acute (7) Cardiomyopathy: Status: Acute
[2024-07-18] MEDS: LIPITOR TAB 20 MG PO SCH (08:52)
[2024-07-18 12:12] VITALS: BP 123/66; PULSE 115; RESP 20; TEMP 97.7; O2SAT 91
== END 2024-07-18 13:20 | disposition home or self-care (01) ==
LOC: MED/SURG 10:44 → ER 10:44 → MED/SURG 14:09
PROVIDERS: ADMIT Family Medicine; ATTEND Family Medicine
DX: N17.8 Other acute kidney failure; R06.02 Shortness of breath; I42.9 Cardiomyopathy, unspecified; R09.02 Hypoxemia; E11.65 Type 2 diabetes mellitus with hyperglycemia; I11.0 Hypertensive heart disease with heart failure; I50.9 Heart failure, unspecified; R26.89 Other abnormalities of gait and mobility; E87.0 Hyperosmolality and hypernatremia; R60.0 Localized edema; Z72.0 Tobacco use; K21.9 Gastro-esophageal reflux disease without esophagitis; J44.1 Chronic obstructive pulmonary disease with (acute) exacerbation; E87.6 Hypokalemia; N18.9 Chronic kidney disease, unspecified